=== PATIENT | female | born 1940 | race Caucasian/White ===

== ENCOUNTER → 2016-07-27 | Outpatient (CLI) | payer MEDICARE ==
[~2016-07-27] MED LIST: TRAM50 PO
[2016-07-27 09:29] LABS: HEMATOCRIT 37.4 % (35.0-46.0); MEAN CELL VOLUME 85.2 FL (80.0-100.0); MEAN CORPUSCULAR HGB CONC 32.8 % (32.0-36.0); PLATELET COUNT 231 TH/MM3 (150-450); RED BLOOD COUNT 4.38 MIL/MM3 (4.00-5.30); RED CELL DISTRIBUTION WIDTH 14.8 % (11.6-17.2); REVIEW FLAG FINAL; WHITE BLOOD COUNT 3.1 TH/MM3 (4.0-11.0)
[2016-07-27 09:58] LABS: ALKALINE PHOSPHATASE 89 U/L (45-117); ALT (GPT) 14 U/L (10-53); ANION GAP 5 MEQ/L (5-15); AST (GOT) 10 U/L (15-37); BICARBONATE 30.6 MEQ/L (21.0-32.0); BLOOD UREA NITROGEN 10 MG/DL (7-18); CHLORIDE 104 MEQ/L (98-107); FREE T4 1.17 NG/DL (0.76-1.46); GLOMERULAR FILTRATION RATE 84 ML/MIN (>89); GLUCOSE,FASTING 79 MG/DL (74-99); HDL CHOLESTEROL 67.3 MG/DL (40.0-60.0); LDL CHOLESTEROL 92 MG/DL (0-99); LDL CHOLESTEROL DIRECT 113 MG/DL (0-99); POTASSIUM 4.1 MEQ/L (3.5-5.1); SODIUM (NA) 140 MEQ/L (136-145); TOTAL BILIRUBIN ADULT 0.4 MG/DL (0.2-1.0)
[2016-07-27 16:07] LABS: HEMOGLOBIN A1a 1.1 %; HEMOGLOBIN A1b 1.4 %; HEMOGLOBIN Ao 86.7 %; HEMOGLOBIN LA1C 1.7 %; HEMOGLOBIN P3 3.4 %
== END ==
LOC: PLAB 07:55
PROVIDERS: ATTEND Family Medicine
DX: E78.2 Mixed hyperlipidemia (principal); I10 Essential (primary) hypertension; E03.8 Other specified hypothyroidism; R73.01 Impaired fasting glucose
CPT/HCPCS: 36415; 80053; 80061; 83036; 83721; 84439; 84443; 85027

== ENCOUNTER → 2017-01-23 | Outpatient (CLI) | payer MEDICARE ==
[2017-01-23 10:39] LABS: HEMATOCRIT 37.8 % (35.0-46.0); MEAN CELL VOLUME 85.1 FL (80.0-100.0); MEAN CORPUSCULAR HEMOGLOBIN 28.3 PG (27.0-34.0); MEAN CORPUSCULAR HGB CONC 33.2 % (32.0-36.0); PLATELET COUNT 249 TH/MM3 (150-450); RED BLOOD COUNT 4.45 MIL/MM3 (4.00-5.30); RED CELL DISTRIBUTION WIDTH 14.7 % (11.6-17.2); REVIEW FLAG FINAL; WHITE BLOOD COUNT 2.9 TH/MM3 (4.0-11.0)
[2017-01-23 10:47] LABS: ANION GAP 5 MEQ/L (5-15); AST (GOT) 16 U/L (15-37); BICARBONATE 30.8 MEQ/L (21.0-32.0); BLOOD UREA NITROGEN 11 MG/DL (7-18); CHLORIDE 105 MEQ/L (98-107); GLOMERULAR FILTRATION RATE 89 ML/MIN (>89); GLUCOSE,FASTING 84 MG/DL (74-99); POTASSIUM 4.3 MEQ/L (3.5-5.1); SODIUM (NA) 141 MEQ/L (136-145)
[2017-01-23 11:13] LABS: ALKALINE PHOSPHATASE 59 U/L (45-117); ALT (GPT) 14 U/L (10-53); FREE T4 1.18 NG/DL (0.76-1.46); HDL CHOLESTEROL 77.3 MG/DL (40.0-60.0); LDL CHOLESTEROL 100 MG/DL (0-99); LDL CHOLESTEROL DIRECT 115 MG/DL (0-99); TOTAL BILIRUBIN ADULT 0.4 MG/DL (0.2-1.0)
== END ==
LOC: PLAB 08:40
PROVIDERS: ATTEND Family Medicine
DX: E55.9 Vitamin D deficiency, unspecified (principal); E78.4 Other hyperlipidemia; E03.8 Other specified hypothyroidism; E53.8 Deficiency of other specified B group vitamins
CPT/HCPCS: 36415; 80053; 80061; 82306; 82607; 83721; 84439; 84443; 85027

== ENCOUNTER → 2017-07-23 | Outpatient (CLI) | payer MEDICARE ==
[2017-07-23 10:39] LABS: HEMATOCRIT 38.3 % (35.0-46.0); HEMOGLOBIN 12.8 GM/DL (11.6-15.3); MEAN CELL VOLUME 85.8 FL (80.0-100.0); MEAN CORPUSCULAR HEMOGLOBIN 28.8 PG (27.0-34.0); MEAN CORPUSCULAR HGB CONC 33.5 % (32.0-36.0); MEAN PLATELET VOLUME 7.8 FL (7.0-11.0); PLATELET COUNT 280 TH/MM3 (150-450); RED BLOOD COUNT 4.46 MIL/MM3 (4.00-5.30); RED CELL DISTRIBUTION WIDTH 15.2 % (11.6-17.2); WHITE BLOOD COUNT 3.3 TH/MM3 (4.0-11.0)
[2017-07-23 10:56] LABS: AST (GOT) 21 U/L (15-37); BICARBONATE 30.2 MEQ/L (21.0-32.0); BLOOD UREA NITROGEN 10 MG/DL (7-18); CALCIUM 9.4 MG/DL (8.5-10.1); CHLORIDE 104 MEQ/L (98-107); CREATININE 0.79 MG/DL (0.50-1.00); GLOMERULAR FILTRATION RATE 71 ML/MIN (>89); GLUCOSE,FASTING 82 MG/DL (74-99); SODIUM (NA) 140 MEQ/L (136-145)
[2017-07-23 10:57] LABS: CHOLESTEROL 187 MG/DL (120-200)
[2017-07-23 11:24] LABS: ALKALINE PHOSPHATASE 70 U/L (45-117); ALT (GPT) 21 U/L (10-53); CHOLESTEROL/ HDL RATIO 2.44 RATIO; HDL CHOLESTEROL 76.5 MG/DL (40.0-60.0); LDL CHOLESTEROL 104 MG/DL (0-99); LDL CHOLESTEROL DIRECT 110 MG/DL (0-99); TOTAL BILIRUBIN ADULT 0.5 MG/DL (0.2-1.0); TRIGLYCERIDES 34 MG/DL (42-150)
== END ==
LOC: PLAB 07:56
PROVIDERS: ATTEND Family Medicine
DX: E78.4 Other hyperlipidemia (principal); E03.8 Other specified hypothyroidism; E53.8 Deficiency of other specified B group vitamins; F41.9 Anxiety disorder, unspecified; E55.9 Vitamin D deficiency, unspecified
CPT/HCPCS: 36415; 80053; 80061; 82306; 82607; 83721; 85027

== ENCOUNTER 2017-12-10 14:57 | Inpatient (IN) ==
[2017-12-10] MEDS ORDERED: Sod Chloride 0.9% Inj 1,000 ML IV.CONT SCH (15:30)
--- NOTE | 2017-12-10 15:31 | ED ---
HPI General Chief Complaint: Neuro Symptoms/Deficit Stated Complaint: AMS/shaking Source: patient and other (Friend with frequent communication Sunday and Sunday with change on Sunday morning with moderate confusion.) Mode of arrival: ambulatory Limitations: no limitations (With moderate confusion as to date and time) History of Present Illness HPI Narrative: Patient comes with history of hypertension with moderate confusion noted yesterday that persisted until today when patientWas seen by PMD and found to be confused and disoriented from normal state. There is no other reported neurologic deficit as far as ambulation or activity reported Related Data Home Medications Medication Instructions Recorded Confirmed cholecalciferol (vitamin D3) 4,000 units PO DAILY 12/10/17 12/10/17 levothyroxine 112 mcg PO DAILY 12/10/17 12/10/17 lorazepam 1 mg PO BID 12/10/17 12/10/17 trazodone 50 mg PO HS 12/10/17 12/10/17 Allergies Allergy/AdvReac Type Severity Reaction Status Date / Time morphine Allergy Unknown Agitation Verified 12/10/17 16:05 Review of Systems ROS: all other systems reviewed are negative (GENERAL: Alert and oriented with moderate confusion as to date and time. Also confused as to recent activities. SKIN: Focused skin assessment warm/dry. HEAD: Atraumatic. Normocephalic. EYES : Pupils equal and round. No scleral icterus. No injection or drainage. ENT: No nasal bleeding or discharge) [facility] Medical History Medical History History of cancer tonsil (Acute) Hypothyroidism (Acute) Surgical History Surgical History History of open reduction and internal fixation (ORIF) procedure (Acute) Social History Social History Substance History: No History of Abuse Second Hand Smoke Exposure: No Smoking Status: Never smoker How Often Do You Have a Drink Containing Alcohol: Never Recent Travel in [facility] within the Last 8 Weeks: No Recent Out of Country Travel within the Last 8 Weeks: No Exam Narrative Exam Narrative: GENERAL: Moderate confusion but alert and partially oriented SKIN: Focused skin assessment warm/dry. HEAD: Atraumatic. Normocephalic. EYES: Pupils equal and round. No scleral icterus. No injection or drainage. ENT: No nasal bleeding or discharge. Mucous membranes pink and moist. NECK: Trachea midline. No JVD. CARDIOVASCULAR: Regular rate and rhythm. No murmur appreciated. RESPIRATORY: No accessory muscle use. Clear to auscultation. Breath sounds equal bilaterally. GASTROINTESTINAL: Abdomen soft, non-tender, nondistended. Hepatic and splenic margins not palpable. MUSCULOSKELETAL: No obvious deformities. No clubbing. No cyanosis. No edema. NEUROLOGICAL: Awake and alert. No obvious cranial nerve deficits. Motor grossly within normal limits. Normal speech. PSYCHIATRIC: Appropriate mood and affect; insight and judgment normal. But shows moderate confusion and disorientation. GENERAL: Moderate confusion but largely oriented SKIN: Focused skin assessment warm/dry. HEAD: Atraumatic. Normocephalic. EYES: Pupils equal and round. No scleral icterus. No injection or drainage. ENT: No nasal bleeding or discharge. Mucous membranes pink and moist. NECK: Trachea midline. No JVD. CARDIOVASCULAR: Regular rate and rhythm. No murmur appreciated. Regular rhythm periodically RESPIRATORY: No accessory muscle use. Clear to auscultation. Breath sounds equal bilaterally. GASTROINTESTINAL: Abdomen soft, non-tender, nondistended. Hepatic and splenic margins not palpable. MUSCULOSKELETAL: No obvious deformities. No clubbing. No cyanosis. No edema. NEUROLOGICAL: Awake and alert. No obvious cranial nerve deficits. Motor grossly within normal limits. Normal speech. PSYCHIATRIC: Appropriate mood and affect; moderate confusion. Course Reevaluation(s) Reevaluation #1: Unchanged patient will be admitted with MRI in morning Time: 21:00 Initial Documented Vital Signs Temperature 98.6 F 12/10/17 15:00 Pulse Rate 79 12/10/17 15:00 Respiratory Rate 16 12/10/17 15:00 Blood Pressure 169/104 H 12/10/17 15:00 Pulse Oximetry 98 12/10/17 15:00 Last Documented Vital Signs Temperature 98.6 F 12/10/17 15:00 Pulse Rate 75 12/10/17 16:08 Respiratory Rate 16 12/10/17 16:08 Blood Pressure 144/87 H 12/10/17 16:08 Pulse Oximetry 97 12/10/17 16:08 Critical Care Time Critical Care Time: No Medical Decision Making MDM Narrative Medical decision making narrative: Patient evaluated for differential of other causes for confusion and disoriented state however possibility of CVA can be evaluated with MRI in the morning Medical Screen Exam Complete: Yes Emergency Medical Condition: Yes Medical Records Medical records reviewed: Yes I reviewed the patient's medical records. Lab Data Result diagrams: 12/10/17 15:40 12/10/17 15:40 Lab Results 12/10/17 12/10/17 12/10/17 Range/Units 15:10 15:40 15:40 CBC w Diff Auto diff final WBC 6.3 (4.0-11.0) th/mm3 RBC 4.42 (4.00-5.30) mil/mm3 Hgb 13.4 (11.6-15.3) gm/dL Hct 39.1 (35.0-46.0) % MCV 88.4 (80.0-100.0) fL MCH 30.3 (27.0-34.0) pg MCHC 34.3 (32.0-36.0) % RDW 13.5 (11.6-17.2) % Plt Count 259 (150-450) th/mm3 MPV 7.9 (7.0-11.0) fL Neut % (Auto) 78.3 H (16.0-70.0) % Lymph % (Auto) 14.0 (9.0-44.0) % [place] % (Auto) 7.0 (0.0-8.0) % Eos % (Auto) 0.2 (0.0-4.0) % Baso % (Auto) 0.5 (0.0-2.0) % Neut # (Auto) 5.0 (1.8-7.7) th/mm3 Lymph # (Auto) 0.9 L (1.0-4.8) th/mm3 [place] # (Auto) 0.4 (0.0-0.9) th/mm3 Eos # (Auto) 0.0 (0.0-0.4) th/mm3 Baso # (Auto) 0.0 (0.0-0.2) th/mm3 WBC Differential . Differential Comment . PT (9.8-11.6) sec INR Ratio APTT (24.3-30.1) sec Sodium 136 (136-145) meq/L Potassium 3.4 L (3.5-5.1) meq/L Chloride 100 (98-107) meq/L Carbon Dioxide 29.8 (21.0-32.0) meq/L Anion Gap 6 (5-15) meq/L BUN 18 (7-18) mg/dL Creatinine 0.80 (0.50-1.00) mg/dL Estimated GFR 70 L (>89) mL/min POC Glucose 87 (68-110) mg/dl Random Glucose 92 (74-106) mg/dL Calcium 9.2 (8.5-10.1) mg/dL Total Bilirubin 0.8 (0.2-1.0) mg/dL AST 15 (15-37) U/L ALT 15 (10-53) U/L Alkaline Phosphatase 77 (45-117) U/L Total Creatine Kinase 141 (26-192) U/L CK-MB (CK-2) 3.6 (0.5-3.6) ng/mL Troponin I Less than 0.02 L (0.02-0.05) ng/mL Total Protein 7.6 (6.4-8.2) g/dL Albumin 4.0 (3.4-5.0) g/dL Urine Color (Yellw/Straw) Urine Clarity (Clear) Urine pH (5.0-8.5) Ur Specific [place] (1.002-1.035) Urine Protein (Neg-Trace) mg/dL Urine Glucose (UA) (Negative) mg/dL Urine Ketones (Negative) mg/dL Urine Occult Blood (Negative) Urine Nitrate (Negative) Urine Bilirubin (Negative) Urine Urobilinogen (Less than 2) mg/dL Ur Leukocyte Esterase (Negative) Urine WBC (0-5) /hpf Micro UA Comment Ur Microscopic Review Urine Culture Comments Urine Opiates Screen (Neg) Ur Barbiturates Screen (Neg) Ur Amphetamines Screen (Neg) U Benzodiazepines Scrn (Neg) Urine Cocaine Screen (Neg) U Cannabinoids Screen (Neg) Blood Type Blood Type Recheck Antibody Screen 12/10/17 12/10/17 12/10/17 Range/Units 15:40 15:40 15:40 CBC w Diff WBC (4.0-11.0) th/mm3 RBC (4.00-5.30) mil/mm3 Hgb (11.6-15.3) gm/dL Hct (35.0-46.0) % MCV (80.0-100.0) fL MCH (27.0-34.0) pg MCHC (32.0-36.0) % RDW (11.6-17.2) % Plt Count (150-450) th/mm3 MPV (7.0-11.0) fL Neut % (Auto) (16.0-70.0) % Lymph % (Auto) (9.0-44.0) % [place] % (Auto) (0.0-8.0) % Eos % (Auto) (0.0-4.0) % Baso % (Auto) (0.0-2.0) % Neut # (Auto) (1.8-7.7) th/mm3 Lymph # (Auto) (1.0-4.8) th/mm3 [place] # (Auto) (0.0-0.9) th/mm3 Eos # (Auto) (0.0-0.4) th/mm3 Baso # (Auto) (0.0-0.2) th/mm3 WBC Differential Differential Comment PT 10.7 (9.8-11.6) sec INR 1.1 Ratio APTT 25.6 (24.3-30.1) sec Sodium (136-145) meq/L Potassium (3.5-5.1) meq/L Chloride (98-107) meq/L Carbon Dioxide (21.0-32.0) meq/L Anion Gap (5-15) meq/L BUN (7-18) mg/dL Creatinine (0.50-1.00) mg/dL Estimated GFR (>89) mL/min POC Glucose (68-110) mg/dl Random Glucose (74-106) mg/dL Calcium (8.5-10.1) mg/dL Total Bilirubin (0.2-1.0) mg/dL AST (15-37) U/L ALT (10-53) U/L Alkaline Phosphatase (45-117) U/L Total Creatine Kinase Cancelled (26-192) U/L CK-MB (CK-2) (0.5-3.6) ng/mL Troponin I Cancelled (0.02-0.05) ng/mL Total Protein (6.4-8.2) g/dL Albumin (3.4-5.0) g/dL Urine Color (Yellw/Straw) Urine Clarity (Clear) Urine pH (5.0-8.5) Ur Specific [place] (1.002-1.035) Urine Protein (Neg-Trace) mg/dL Urine Glucose (UA) (Negative) mg/dL Urine Ketones (Negative) mg/dL Urine Occult Blood (Negative) Urine Nitrate (Negative) Urine Bilirubin (Negative) Urine Urobilinogen (Less than 2) mg/dL Ur Leukocyte Esterase (Negative) Urine WBC (0-5) /hpf Micro UA Comment Ur Microscopic Review Urine Culture Comments Urine Opiates Screen (Neg) Ur Barbiturates Screen (Neg) Ur Amphetamines Screen (Neg) U Benzodiazepines Scrn (Neg) Urine Cocaine Screen (Neg) U Cannabinoids Screen (Neg) Blood Type B Positive Blood Type Recheck Required Antibody Screen Negative 12/10/17 12/10/17 Range/Units 18:50 18:50 CBC w Diff WBC (4.0-11.0) th/mm3 RBC (4.00-5.30) mil/mm3 Hgb (11.6-15.3) gm/dL Hct (35.0-46.0) % MCV (80.0-100.0) fL MCH (27.0-34.0) pg MCHC (32.0-36.0) % RDW (11.6-17.2) % Plt Count (150-450) th/mm3 MPV (7.0-11.0) fL Neut % (Auto) (16.0-70.0) % Lymph % (Auto) (9.0-44.0) % [place] % (Auto) (0.0-8.0) % Eos % (Auto) (0.0-4.0) % Baso % (Auto) (0.0-2.0) % Neut # (Auto) (1.8-7.7) th/mm3 Lymph # (Auto) (1.0-4.8) th/mm3 [place] # (Auto) (0.0-0.9) th/mm3 Eos # (Auto) (0.0-0.4) th/mm3 Baso # (Auto) (0.0-0.2) th/mm3 WBC Differential Differential Comment PT (9.8-11.6) sec INR Ratio APTT (24.3-30.1) sec Sodium (136-145) meq/L Potassium (3.5-5.1) meq/L Chloride (98-107) meq/L Carbon Dioxide (21.0-32.0) meq/L Anion Gap (5-15) meq/L BUN (7-18) mg/dL Creatinine (0.50-1.00) mg/dL Estimated GFR (>89) mL/min POC Glucose (68-110) mg/dl Random Glucose (74-106) mg/dL Calcium (8.5-10.1) mg/dL Total Bilirubin (0.2-1.0) mg/dL AST (15-37) U/L ALT (10-53) U/L Alkaline Phosphatase (45-117) U/L Total Creatine Kinase (26-192) U/L CK-MB (CK-2) (0.5-3.6) ng/mL Troponin I (0.02-0.05) ng/mL Total Protein (6.4-8.2) g/dL Albumin (3.4-5.0) g/dL Urine Color Yellow (Yellw/Straw) Urine Clarity Clear (Clear) Urine pH 6.5 (5.0-8.5) Ur Specific [place] 1.015 (1.002-1.035) Urine Protein Negative (Neg-Trace) mg/dL Urine Glucose (UA) Negative (Negative) mg/dL Urine Ketones 15 H (Negative) mg/dL Urine Occult Blood Negative (Negative) Urine Nitrate Negative (Negative) Urine Bilirubin Negative (Negative) Urine Urobilinogen 1.0 (Less than 2) mg/dL Ur Leukocyte Esterase Negative (Negative) Urine WBC 0-5 (0-5) /hpf Micro UA Comment Culture not ind Ur Microscopic Review Microscopic reviewed Urine Culture Comments Culture not ind Urine Opiates Screen Neg (Neg) Ur Barbiturates Screen Neg (Neg) Ur Amphetamines Screen Neg (Neg) U Benzodiazepines Scrn Neg (Neg) Urine Cocaine Screen Neg (Neg) U Cannabinoids Screen Neg (Neg) Blood Type Blood Type Recheck Antibody Screen Imaging Data Radiologist's impression: Head CT 12/10/17 15:20 CONCLUSION: 1. Senescent changes without acute intracranial abnormality. . Chest X-Ray 12/10/17 15:21 CONCLUSION: Negative for an acute process Discharge Plan Discharge Disposition Patient Disposition: 50 Hospice/Home Discharge Condition Condition: [facility] ED Provider: Xu Enciso Primary Care Provider: Ruslan Malagon Rxs /Orders / Referrals /Forms Prescriptions: No Action cholecalciferol (vitamin D3) 4,000 units PO DAILY RF: 0 levothyroxine 112 mcg PO DAILY RF: 0 lorazepam 1 mg PO BID RF: 0 trazodone 50 mg PO HS RF: 0 Status ED Status: In Room
--- NOTE | 2017-12-10 16:05 | XR ---
EXAM DATE: 12/10/2017 3:55 PM EDT AGE/SEX: 77 years / Female INDICATIONS: Altered mental status. CLINICAL DATA: This is the patient's initial encounter. Patient reports that signs and symptoms have been present for 1 day and indicates a pain score of 0/10. MEDICAL/SURGICAL HISTORY: Hypothyroidism. Tonsil cancer. Tonsillectomy. COMPARISON: No prior exams available for comparison. FINDINGS: A single AP view of the chest demonstrates the lungs to be symmetrically aerated without evidence of mass, infiltrate or effusion. The cardiomediastinal contours are unremarkable. Osseous structures a re intact. CONCLUSION: Negative for an acute process Electronically signed by: Immanuel Blanca MD 12/10/2017 4:04 PM EDT
[2017-12-10 16:07] LABS: Baso % (Auto) 0.5 % (0.0-2.0); Eos % (Auto) 0.2 % (0.0-4.0); Hematocrit 39.1 % (35.0-46.0); Hemoglobin 13.4 gm/dL (11.6-15.3); Lymph # (Auto) 0.9 th/mm3 (1.0-4.8); Mean Corpuscular HGB Conc 34.3 % (32.0-36.0); Mean Corpuscular Hemoglobin 30.3 pg (27.0-34.0); Mean Corpuscular Volume 88.4 fL (80.0-100.0); Mean Platelet Volume 7.9 fL (7.0-11.0); Mono # (Auto) 0.4 th/mm3 (0.0-0.9); Neut % (Auto) 78.3 % (16.0-70.0); Platelet Count 259 th/mm3 (150-450); Red Blood Count 4.42 mil/mm3 (4.00-5.30); Red Cell Distribution Width 13.5 % (11.6-17.2); White Blood Count 6.3 th/mm3 (4.0-11.0)
[2017-12-10 16:22] LABS: Chloride 100 meq/L (98-107); Potassium 3.4 meq/L (3.5-5.1); Sodium 136 meq/L (136-145)
[2017-12-10 16:25] LABS: Calcium 9.2 mg/dL (8.5-10.1)
[2017-12-10 16:26] LABS: Anion Gap 6 meq/L (5-15); Blood Urea Nitrogen 18 mg/dL (7-18); Carbon Dioxide 29.8 meq/L (21.0-32.0); Glucose,Random 92 mg/dL (74-106)
[2017-12-10 16:29] LABS: Alanine Aminotransferase 15 U/L (10-53); Aspartate Aminotransferase 15 U/L (15-37); Glomerular Filtration Rate 70 mL/min (>89)
[2017-12-10 16:31] LABS: Activated Partial Thrombo Time 25.6 sec (24.3-30.1); INR 1.1 Ratio; Prothrombin Time 10.7 sec (9.8-11.6); Total Protein 7.6 g/dL (6.4-8.2)
[2017-12-10 16:32] LABS: Alkaline Phosphatase 77 U/L (45-117); Creatine Kinase 141 U/L (26-192)
[2017-12-10 16:44] LABS: Creatine Kinase MB 3.6 ng/mL (0.5-3.6)
--- NOTE | 2017-12-10 17:01 | CT ---
EXAM DATE: 12/10/2017 4:55 PM EDT AGE/SEX: 77 years / Female INDICATIONS: Episode of confusion. CLINICAL DATA: This is the patient's initial encounter. Patient reports that signs and symptoms have been present for 1 day and indicates a pain score of 0/10. MEDICAL/SURGICAL HISTORY: Hypothyroidism. Tonsil cancer. None. RADIATION DOSE: 54.79 CTDI (mGy) COMPARISON: POI, MR BRAIN W AND W/O CONTRAST, 09/21/2015. . TECHNIQUE: CT of the head without contrast. Using automated exposure control and adjustment of the mA and/or kV according to patient size, radiation dose was kept as low as reasonably achievable to ob tain optimal diagnostic quality images. DICOM format image data is available electronically for revi ew and comparison. FINDINGS: Cerebrum: Mild diffuse cerebral atrophy. The ventricles are normal for degree of atrophy. Mild periv entricular white matter hypodensities. No evidence of midline shift, mass lesion, hemorrhage or acute infarction. No extraaxial fluid collections are seen. Posterior Fossa: The cerebellum and brainstem are intact. The 4th ventricle is midline. The cerebe llopontine angle is unremarkable. Extracranial: The visualized portion of the orbits is intact. Skull: The calvaria is intact. No evidence of skull fracture. CONCLUSION: 1. Senescent changes without acute intracranial abnormality. . Electronically signed by: Isael Stringer MD 12/10/2017 5:00 PM EDT
[2017-12-10] MEDS ORDERED: HYDROmorphone PF Inj 2 MG/ML Vial IV.PUSH ONE (17:26)
[2017-12-10 19:13] LABS: Cocaine Screen,Urine Neg (Neg)
[2017-12-10 19:17] LABS: Opiate Screen,Urine Neg (Neg)
[2017-12-10 19:21] LABS: Amphetamine Screen,Urine Neg (Neg)
[2017-12-10 19:23] LABS: Barbiturate Screen,Urine Neg (Neg)
[2017-12-10 19:26] LABS: Cannabinoid Screen,Urine Neg (Neg)
[2017-12-10 19:34] LABS: Bilirubin,Urine Negative (Negative); Clarity,Urine Clear (Clear); Color,Urine Yellow (Yellw/Straw); Glucose,Urine (UA) Negative (Negative); Leukocyte Esterase,Urine Negative (Negative); Nitrite,Urine Negative (Negative); PH,Urine 6.5 (5.0-8.5); Specific Gravity,Urine 1.015 (1.002-1.035); WBC,Urine 0-5 /hpf (0-5)
[2017-12-10] MEDS: Sod Chloride 0.9% Inj 1,000 ML IV.CONT SCH (21:30)
[2017-12-11] MEDS: Sod Chloride 0.9% Inj 1,000 ML IV.CONT SCH ×3 (05:38→16:02)
[2017-12-11 06:17] LABS: Eos % (Auto) 0.8 % (0.0-4.0); Hematocrit 36.9 % (35.0-46.0); Hemoglobin 12.8 gm/dL (11.6-15.3); Lymph # (Auto) 0.7 th/mm3 (1.0-4.8); Lymph % (Auto) 17.3 % (9.0-44.0); Mean Corpuscular HGB Conc 34.7 % (32.0-36.0); Mean Corpuscular Hemoglobin 30.8 pg (27.0-34.0); Mean Corpuscular Volume 88.6 fL (80.0-100.0); Mean Platelet Volume 8.1 fL (7.0-11.0); Mono # (Auto) 0.4 th/mm3 (0.0-0.9); Mono % (Auto) 9.9 % (0.0-8.0); Neut # (Auto) 2.8 th/mm3 (1.8-7.7); Platelet Count 245 th/mm3 (150-450); Red Blood Count 4.16 mil/mm3 (4.00-5.30); White Blood Count 3.9 th/mm3 (4.0-11.0)
[2017-12-11 06:23] LABS: Chloride 105 meq/L (98-107); Potassium 3.5 meq/L (3.5-5.1); Sodium 141 meq/L (136-145)
[2017-12-11 06:46] LABS: Anion Gap 6 meq/L (5-15); Blood Urea Nitrogen 13 mg/dL (7-18); Calcium 8.3 mg/dL (8.5-10.1); Carbon Dioxide 30.1 meq/L (21.0-32.0); Glomerular Filtration Rate Greater Than 89 mL/min (>89); Glucose,Random 87 mg/dL (74-106)
--- NOTE | 2017-12-11 09:04 | P.CONNEU ---
History of Present Illness Service: Neurology Primary Care Provider: Ruslan Malagon MD Family Provider: Ruslan Malagon MD Chief Complaint: Confusion History of Present Illness: 77-year-old female admitted for confusion past couple of days. Noticed by her friend. She states she gets this whenever she has a migraine she gets in a clinical stuporous state. She has a history of migraine headaches since childhood. Denies any history of stroke or TIA or seizure. Denies any visual loss focal weakness or language disturbance. She lives alone and is independent all activities. She just finished eating breakfast and feels better. Review of Systems All other systems reviewed negative except as stated in HPI PMFSH - History History Provided By: Patient - Medical History Medical History: Medical History (Last Reviewed 12/10/17 @ 20:29 by Xu Enciso MD) History of cancer tonsil Hypothyroidism - Surgical History Surgical History: Surgical History (Last Reviewed 12/10/17 @ 20:29 by Xu Enciso MD) History of open reduction and internal fixation (ORIF) procedure - Tobacco History Second Hand Smoke Exposure: No Tobacco Use In Past 30 Days: No Smoking Status: Never smoker - Alcohol History How Often Do You Have a Drink Containing Alcohol: Never - Substance Use History Substance History: No History of Abuse - Travel History Recent Travel in the [place] Within the Last 8 Weeks: No Recent Travel Out of the Country Within the Last 8 Weeks: No - Immunization History Tetanus Immunization: Never Vaccinated Hx Influenza Vaccine This Season: No Medications and Allergies Active Medications: Active Medications Sodium Chloride (Ns Inj) 1,000 mls @ 100 mls/hr IV.CONT .Q10H UMESH Last Admin: 12/11/17 06:10 Dose: Not Given Ondansetron HCl (Zofran Inj) 4 mg IV.PUSH Q6H PRN PRN Reason: NAUSEA OR VOMITING Sodium Chloride (Ns Flush) 2 ml IV.FLUSH PRN PRN PRN Reason: FLUSH AFTER USING IV ACCESS Allergies Allergy/AdvReac Type Severity Reaction Status Date / Time morphine Allergy Unknown Agitation Verified 12/10/17 16:05 Home Medications Medication Instructions Recorded Confirmed Type cholecalciferol (vitamin D3) 4,000 units PO DAILY 12/10/17 12/10/17 History levothyroxine 112 mcg PO DAILY 12/10/17 12/10/17 History lorazepam 1 mg PO BID 12/10/17 12/10/17 History trazodone 50 mg PO HS 12/10/17 12/10/17 History Exam Vital signs: Vital Signs 12/10/17 15:00 12/10/17 15:28 12/10/17 16:08 Temperature 98.6 F Pulse Rate 79 75 Respiratory Rate 16 16 Blood Pressure 169/104 H 144/87 H Pulse Oximetry 98 98 97 12/10/17 21:24 12/10/17 23:08 12/10/17 23:11 Temperature 98.6 F Pulse Rate 78 77 84 Respiratory Rate 18 15 Blood Pressure 161/89 H 171/89 H Pulse Oximetry 98 91 L 12/11/17 00:00 12/11/17 08:00 Temperature 98.5 F Pulse Rate 86 Respiratory Rate 16 Blood Pressure 138/87 Pulse Oximetry 94 L 97 Intake & Output 12/10/17 12/11/17 12/11/17 18:59 06:59 18:59 Intake Total 2280 / 2280 Balance 2280 / 2280 Weight 61.5 kg 59.6 kg Intake: IV 1999 NS Inj 1,000 ML @ 70 mls/hr IV. 1999 CONT .[id number] UMESH Rx#: [id number] Oral 280 / 280 Other: # Voids 3 Date of Last Bowel Movement 12/09/17 Weight On Admission 59.6 kg Narrative: GENERAL: This is a well-nourished, well-developed patient, in no apparent distress. SKIN: No rashes, ecchymoses or lesions. Warm and dry. HEAD: Atraumatic. Normocephalic. No temporal or scalp tenderness. EYES: Pupils equal round and reactive. No injection or drainage. ENT: Nose without bleeding, purulent drainage or septal hematoma. Airway patent. NECK: Trachea midline. No lymphadenopathy. Supple, nontender, no meningeal signs. CARDIOVASCULAR: Regular rate and rhythm without murmurs, gallops, or rubs. No JVD. RESPIRATORY: Clear to auscultation. Breath sounds equal bilaterally. GASTROINTESTINAL: Abdomen soft, non-tender, nondistended. No guarding. MUSCULOSKELETAL: Extremities without clubbing, cyanosis, or edema. NEUROLOGICAL: Awake and alert. Oriented 3, clear speech sitting up in bed poor eye contact, mild left-sided neglect however visual miranda full however OU 3 mm sluggishly reactive, Cranial nerves II through XII intact. Neck supple, no temporal tenderness no pronator drift no dystaxia no tremors noted. Gait not assessed secondary potential fall risk - Constitutional no acute distress - Routine HEENT Exam Head: Present: normocephalic Eye: Present: EOMI Results - Labs CBC & Chem 7: 12/11/17 05:50 12/11/17 05:50 Labs: Laboratory Results - last 24 hr 12/10/17 12/10/17 12/10/17 15:10 15:40 15:40 CBC w Diff Auto diff final WBC 6.3 RBC 4.42 Hgb 13.4 Hct 39.1 MCV 88.4 MCH 30.3 MCHC 34.3 RDW 13.5 Plt Count 259 MPV 7.9 Neut % (Auto) 78.3 H Lymph % (Auto) 14.0 [place] % (Auto) 7.0 Eos % (Auto) 0.2 Baso % (Auto) 0.5 Neut # (Auto) 5.0 Lymph # (Auto) 0.9 L [place] # (Auto) 0.4 Eos # (Auto) 0.0 Baso # (Auto) 0.0 WBC Differential . Differential Comment . PT INR APTT Sodium 136 Potassium 3.4 L Chloride 100 Carbon Dioxide 29.8 Anion Gap 6 BUN 18 Creatinine 0.80 Estimated GFR 70 L POC Glucose 87 Random Glucose 92 Calcium 9.2 Total Bilirubin 0.8 AST 15 ALT 15 Alkaline Phosphatase 77 Ammonia Total Creatine Kinase 141 CK-MB (CK-2) 3.6 Troponin I Less than 0.02 L Total Protein 7.6 Albumin 4.0 Urine Color Urine Clarity Urine pH Ur Specific [place] Urine Protein Urine Glucose (UA) Urine Ketones Urine Occult Blood Urine Nitrate Urine Bilirubin Urine Urobilinogen Ur Leukocyte Esterase Urine WBC Micro UA Comment Ur Microscopic Review Urine Culture Comments Urine Opiates Screen Ur Barbiturates Screen Ur Amphetamines Screen U Benzodiazepines Scrn Urine Cocaine Screen U Cannabinoids Screen Blood Type Blood Type Recheck Antibody Screen 12/10/17 12/10/17 12/10/17 15:40 15:40 15:40 CBC w Diff WBC RBC Hgb Hct MCV MCH MCHC RDW Plt Count MPV Neut % (Auto) Lymph % (Auto) [place] % (Auto) Eos % (Auto) Baso % (Auto) Neut # (Auto) Lymph # (Auto) [place] # (Auto) Eos # (Auto) Baso # (Auto) WBC Differential Differential Comment PT 10.7 INR 1.1 APTT 25.6 Sodium Potassium Chloride Carbon Dioxide Anion Gap BUN Creatinine Estimated GFR POC Glucose Random Glucose Calcium Total Bilirubin AST ALT Alkaline Phosphatase Ammonia Total Creatine Kinase Cancelled CK-MB (CK-2) Troponin I Cancelled Total Protein Albumin Urine Color Urine Clarity Urine pH Ur Specific [place] Urine Protein Urine Glucose (UA) Urine Ketones Urine Occult Blood Urine Nitrate Urine Bilirubin Urine Urobilinogen Ur Leukocyte Esterase Urine WBC Micro UA Comment Ur Microscopic Review Urine Culture Comments Urine Opiates Screen Ur Barbiturates Screen Ur Amphetamines Screen U Benzodiazepines Scrn Urine Cocaine Screen U Cannabinoids Screen Blood Type B Positive Blood Type Recheck Required Antibody Screen Negative 12/10/17 12/10/17 12/10/17 18:50 18:50 21:35 CBC w Diff WBC RBC Hgb Hct MCV MCH MCHC RDW Plt Count MPV Neut % (Auto) Lymph % (Auto) [place] % (Auto) Eos % (Auto) Baso % (Auto) Neut # (Auto) Lymph # (Auto) [place] # (Auto) Eos # (Auto) Baso # (Auto) WBC Differential Differential Comment PT INR APTT Sodium Potassium Chloride Carbon Dioxide Anion Gap BUN Creatinine Estimated GFR POC Glucose Random Glucose Calcium Total Bilirubin AST ALT Alkaline Phosphatase Ammonia Less than 10 L Total Creatine Kinase CK-MB (CK-2) Troponin I Total Protein Albumin Urine Color Yellow Urine Clarity Clear Urine pH 6.5 Ur Specific [place] 1.015 Urine Protein Negative Urine Glucose (UA) Negative Urine Ketones 15 H Urine Occult Blood Negative Urine Nitrate Negative Urine Bilirubin Negative Urine Urobilinogen 1.0 Ur Leukocyte Esterase Negative Urine WBC 0-5 Micro UA Comment Culture not ind Ur Microscopic Review Microscopic reviewed Urine Culture Comments Culture not ind Urine Opiates Screen Neg Ur Barbiturates Screen Neg Ur Amphetamines Screen Neg U Benzodiazepines Scrn Neg Urine Cocaine Screen Neg U Cannabinoids Screen Neg Blood Type Blood Type Recheck Antibody Screen 12/11/17 12/11/17 05:50 05:50 CBC w Diff Auto diff final WBC 3.9 L RBC 4.16 Hgb 12.8 Hct 36.9 MCV 88.6 MCH 30.8 MCHC 34.7 RDW 13.0 Plt Count 245 MPV 8.1 Neut % (Auto) 71.0 H Lymph % (Auto) 17.3 [place] % (Auto) 9.9 H Eos % (Auto) 0.8 Baso % (Auto) 1.0 Neut # (Auto) 2.8 Lymph # (Auto) 0.7 L [place] # (Auto) 0.4 Eos # (Auto) 0.0 Baso # (Auto) 0.0 WBC Differential . Differential Comment . PT INR APTT Sodium 141 Potassium 3.5 Chloride 105 Carbon Dioxide 30.1 Anion Gap 6 BUN 13 Creatinine 0.62 Estimated GFR Greater than 89 POC Glucose Random Glucose 87 Calcium 8.3 L D Total Bilirubin AST ALT Alkaline Phosphatase Ammonia Total Creatine Kinase CK-MB (CK-2) Troponin I Total Protein Albumin Urine Color Urine Clarity Urine pH Ur Specific [place] Urine Protein Urine Glucose (UA) Urine Ketones Urine Occult Blood Urine Nitrate Urine Bilirubin Urine Urobilinogen Ur Leukocyte Esterase Urine WBC Micro UA Comment Ur Microscopic Review Urine Culture Comments Urine Opiates Screen Ur Barbiturates Screen Ur Amphetamines Screen U Benzodiazepines Scrn Urine Cocaine Screen U Cannabinoids Screen Blood Type Blood Type Recheck Antibody Screen - Imaging Impressions Head CT 12/10/17 15:20 CONCLUSION: 1. Senescent changes without acute intracranial abnormality. . Chest X-Ray 12/10/17 15:21 CONCLUSION: Negative for an acute process Review/Management - Diagnosis (1) TIA (transient ischemic attack) Code(s): G45.9 - Transient cerebral ischemic attack, unspecified Status: Acute Current Visit: Yes (2) Migraine Code(s): G43.909 - Migraine, unspecified, not intractable, without status migrainosus Status: Acute Current Visit: Yes (3) Encephalopathy Code(s): G93.40 - Encephalopathy, unspecified Status: Acute Current Visit: Yes - Review/Management Plan: Confusion appears improved although did have somewhat poor eye contact slight left-sided neglect during the interview. Consideration would include right hemispheric TIA/stroke, complex migraine Recommendations Follow-up neuroimaging Aspirin Blood pressure control Echo, lipids EEG Therapy Avoid triptan's Discussed with medical
--- NOTE | 2017-12-11 10:22 | P.HP ---
History of Present Illness Service: Hospitalist Primary Care Physician: Ruslan Malagon MD Chief Complaint: Migraine History of Present Illness: Ms. Reyez is a pleasant 77-year-old female with a history of hypothyroidism and migraine headache who presents to the emergency department on 12/10/2017 due to moderate confusion noted by her primary care physician. Patient reports a bad migraine headache on 12/09/2017. She felt that she was in a stuporous state. On 12/10/2017 she went to her primary care physician for a vitamin B12 shot. Primary care physician noted that patient was disoriented. Patient denies any dysarthria, facial drooling, any focal neurological deficits other than what her primary care physician mention about confusion. She was subsequently advised to come to the emergency department. Patient denies any chest pain, shortness of breath, cough, abdominal pain, fever or chills. No changes in bowel or bladder habits. Additionally, patient expressed concern about upper extremity tremors. During this examination and interview no tremors were noted. Family history: No family history of Alzheimer's or Parkinson's. Past surgical history: ORIF. Social history: Patient denies using tobacco, alcohol, illicit drugs. Past medical history cancer of tonsil, migraine headache, hypothyroidism. - Diagnosis (1) Migraine Review of Systems All other systems reviewed negative except as stated in HPI PMFSH - History History Provided By: Patient - Medical History Medical History: Medical History (Last Reviewed 12/10/17 @ 20:29 by Xu Enciso MD) History of cancer tonsil Hypothyroidism - Surgical History Surgical History: Surgical History (Last Reviewed 12/10/17 @ 20:29 by Xu Enciso MD) History of open reduction and internal fixation (ORIF) procedure - Tobacco History Second Hand Smoke Exposure: No Tobacco Use In Past 30 Days: No Smoking Status: Never smoker - Alcohol History How Often Do You Have a Drink Containing Alcohol: Never - Substance Use History Substance History: No History of Abuse - Travel History Recent Travel in the [place] Within the Last 8 Weeks: No Recent Travel Out of the Country Within the Last 8 Weeks: No - Immunization History Tetanus Immunization: Never Vaccinated Hx Influenza Vaccine This Season: No Medications and Allergies Active Medications: Active Medications Sodium Chloride (Ns Inj) 1,000 mls @ 100 mls/hr IV.CONT .Q10H [facility]ESH Last Admin: 12/11/17 06:10 Dose: Not Given Ondansetron HCl (Zofran Inj) 4 mg IV.PUSH Q6H PRN PRN Reason: NAUSEA OR VOMITING Sodium Chloride (Ns Flush) 2 ml IV.FLUSH PRN PRN PRN Reason: FLUSH AFTER USING IV ACCESS Allergies Allergy/AdvReac Type Severity Reaction Status Date / Time morphine Allergy Unknown Agitation Verified 12/10/17 16:05 Home Medications Medication Instructions Recorded Confirmed Type cholecalciferol (vitamin D3) 4,000 units PO DAILY 12/10/17 12/10/17 History levothyroxine 112 mcg PO DAILY 12/10/17 12/10/17 History lorazepam 1 mg PO BID 12/10/17 12/10/17 History trazodone 50 mg PO HS 12/10/17 12/10/17 History Exam Vital signs: Vital Signs 12/10/17 15:00 12/10/17 15:28 12/10/17 16:08 Temperature 98.6 F Pulse Rate 79 75 Respiratory Rate 16 16 Blood Pressure 169/104 H 144/87 H Pulse Oximetry 98 98 97 12/10/17 21:24 12/10/17 23:08 12/10/17 23:11 Temperature 98.6 F Pulse Rate 78 77 84 Respiratory Rate 18 15 Blood Pressure 161/89 H 171/89 H Pulse Oximetry 98 91 L 12/11/17 00:00 12/11/17 08:00 Temperature 98.5 F Pulse Rate 86 Respiratory Rate 16 Blood Pressure 138/87 Pulse Oximetry 94 L 97 Intake & Output 12/10/17 12/11/17 12/11/17 18:59 06:59 18:59 Intake Total 2280 / 2280 Balance 2280 / 2280 Weight 61.5 kg 59.6 kg Intake: IV 1999 NS Inj 1,000 ML @ 70 mls/hr IV. 1999 CONT .[id number] [facility] Rx#: [id number] Oral 280 / 280 Other: # Voids 3 Date of Last Bowel Movement 12/09/17 Weight On Admission 59.6 kg Narrative: GENERAL: This is a well-nourished, well-developed patient, in no apparent distress. SKIN: No rashes, ecchymoses or lesions. Warm and dry. HEAD: Atraumatic. Normocephalic. No temporal or scalp tenderness. EYES: Pupils equal round and reactive. No injection or drainage. ENT: Nose without bleeding, purulent drainage or septal hematoma. Airway patent. NECK: Trachea midline. No lymphadenopathy. Supple, nontender, no meningeal signs. CARDIOVASCULAR: Regular rate and rhythm without murmurs, gallops, or rubs. No JVD. RESPIRATORY: Clear to auscultation. Breath sounds equal bilaterally. No wheezes , rales, or rhonchi. GASTROINTESTINAL: Abdomen soft, non-tender, nondistended. No guarding. MUSCULOSKELETAL: Extremities without clubbing, cyanosis, or edema. NEUROLOGICAL: Awake and alert. Cranial nerves II through XII intact. No focal neurological deficits. No tremors noted. Normal speech. Results - Labs CBC & Chem 7: 12/11/17 05:50 12/11/17 05:50 Labs: Laboratory Results - last 24 hr 12/10/17 12/10/17 12/10/17 15:10 15:40 15:40 CBC w Diff Auto diff final WBC 6.3 RBC 4.42 Hgb 13.4 Hct 39.1 MCV 88.4 MCH 30.3 MCHC 34.3 RDW 13.5 Plt Count 259 MPV 7.9 Neut % (Auto) 78.3 H Lymph % (Auto) 14.0 [place] % (Auto) 7.0 Eos % (Auto) 0.2 Baso % (Auto) 0.5 Neut # (Auto) 5.0 Lymph # (Auto) 0.9 L [place] # (Auto) 0.4 Eos # (Auto) 0.0 Baso # (Auto) 0.0 WBC Differential . Differential Comment . PT INR APTT Sodium 136 Potassium 3.4 L Chloride 100 Carbon Dioxide 29.8 Anion Gap 6 BUN 18 Creatinine 0.80 Estimated GFR 70 L POC Glucose 87 Random Glucose 92 Calcium 9.2 Total Bilirubin 0.8 AST 15 ALT 15 Alkaline Phosphatase 77 Ammonia Total Creatine Kinase 141 CK-MB (CK-2) 3.6 Troponin I Less than 0.02 L Total Protein 7.6 Albumin 4.0 Urine Color Urine Clarity Urine pH Ur Specific [place] Urine Protein Urine Glucose (UA) Urine Ketones Urine Occult Blood Urine Nitrate Urine Bilirubin Urine Urobilinogen Ur Leukocyte Esterase Urine WBC Micro UA Comment Ur Microscopic Review Urine Culture Comments Urine Opiates Screen Ur Barbiturates Screen Ur Amphetamines Screen U Benzodiazepines Scrn Urine Cocaine Screen U Cannabinoids Screen Blood Type Blood Type Recheck Antibody Screen 12/10/17 12/10/17 12/10/17 15:40 15:40 15:40 CBC w Diff WBC RBC Hgb Hct MCV MCH MCHC RDW Plt Count MPV Neut % (Auto) Lymph % (Auto) [place] % (Auto) Eos % (Auto) Baso % (Auto) Neut # (Auto) Lymph # (Auto) [place] # (Auto) Eos # (Auto) Baso # (Auto) WBC Differential Differential Comment PT 10.7 INR 1.1 APTT 25.6 Sodium Potassium Chloride Carbon Dioxide Anion Gap BUN Creatinine Estimated GFR POC Glucose Random Glucose Calcium Total Bilirubin AST ALT Alkaline Phosphatase Ammonia Total Creatine Kinase Cancelled CK-MB (CK-2) Troponin I Cancelled Total Protein Albumin Urine Color Urine Clarity Urine pH Ur Specific [place] Urine Protein Urine Glucose (UA) Urine Ketones Urine Occult Blood Urine Nitrate Urine Bilirubin Urine Urobilinogen Ur Leukocyte Esterase Urine WBC Micro UA Comment Ur Microscopic Review Urine Culture Comments Urine Opiates Screen Ur Barbiturates Screen Ur Amphetamines Screen U Benzodiazepines Scrn Urine Cocaine Screen U Cannabinoids Screen Blood Type B Positive Blood Type Recheck Required Antibody Screen Negative 12/10/17 12/10/17 12/10/17 18:50 18:50 21:35 CBC w Diff WBC RBC Hgb Hct MCV MCH MCHC RDW Plt Count MPV Neut % (Auto) Lymph % (Auto) [place] % (Auto) Eos % (Auto) Baso % (Auto) Neut # (Auto) Lymph # (Auto) [place] # (Auto) Eos # (Auto) Baso # (Auto) WBC Differential Differential Comment PT INR APTT Sodium Potassium Chloride Carbon Dioxide Anion Gap BUN Creatinine Estimated GFR POC Glucose Random Glucose Calcium Total Bilirubin AST ALT Alkaline Phosphatase Ammonia Less than 10 L Total Creatine Kinase CK-MB (CK-2) Troponin I Total Protein Albumin Urine Color Yellow Urine Clarity Clear Urine pH 6.5 Ur Specific [place] 1.015 Urine Protein Negative Urine Glucose (UA) Negative Urine Ketones 15 H Urine Occult Blood Negative Urine Nitrate Negative Urine Bilirubin Negative Urine Urobilinogen 1.0 Ur Leukocyte Esterase Negative Urine WBC 0-5 Micro UA Comment Culture not ind Ur Microscopic Review Microscopic reviewed Urine Culture Comments Culture not ind Urine Opiates Screen Neg Ur Barbiturates Screen Neg Ur Amphetamines Screen Neg U Benzodiazepines Scrn Neg Urine Cocaine Screen Neg U Cannabinoids Screen Neg Blood Type Blood Type Recheck Antibody Screen 12/11/17 12/11/17 05:50 05:50 CBC w Diff Auto diff final WBC 3.9 L RBC 4.16 Hgb 12.8 Hct 36.9 MCV 88.6 MCH 30.8 MCHC 34.7 RDW 13.0 Plt Count 245 MPV 8.1 Neut % (Auto) 71.0 H Lymph % (Auto) 17.3 [place] % (Auto) 9.9 H Eos % (Auto) 0.8 Baso % (Auto) 1.0 Neut # (Auto) 2.8 Lymph # (Auto) 0.7 L [place] # (Auto) 0.4 Eos # (Auto) 0.0 Baso # (Auto) 0.0 WBC Differential . Differential Comment . PT INR APTT Sodium 141 Potassium 3.5 Chloride 105 Carbon Dioxide 30.1 Anion Gap 6 BUN 13 Creatinine 0.62 Estimated GFR Greater than 89 POC Glucose Random Glucose 87 Calcium 8.3 L D Total Bilirubin AST ALT Alkaline Phosphatase Ammonia Total Creatine Kinase CK-MB (CK-2) Troponin I Total Protein Albumin Urine Color Urine Clarity Urine pH Ur Specific [place] Urine Protein Urine Glucose (UA) Urine Ketones Urine Occult Blood Urine Nitrate Urine Bilirubin Urine Urobilinogen Ur Leukocyte Esterase Urine WBC Micro UA Comment Ur Microscopic Review Urine Culture Comments Urine Opiates Screen Ur Barbiturates Screen Ur Amphetamines Screen U Benzodiazepines Scrn Urine Cocaine Screen U Cannabinoids Screen Blood Type Blood Type Recheck Antibody Screen - Imaging Impressions Head CT 12/10/17 15:20 CONCLUSION: 1. Senescent changes without acute intracranial abnormality. . Chest X-Ray 12/10/17 15:21 CONCLUSION: Negative for an acute process Caprini VTE Risk Assessment Caprini VTE Risk Assessment: No/Low Risk (score <= 1) Caprini Risk Assessment Model: Point Value = 1 Point Value = 2 Point Value = 3 Point Value = 5 Age 41-60 Minor surgery BMI > 25 kg/m2 Swollen legs Varicose veins or History of unexplained or recurrent spontaneous Oral contraceptives or hormone replacement Sepsis (< 1 month) Serious lung disease, including pneumonia (< 1 month) Abnormal pulmonary function Acute myocardial infarction Congestive heart failure (< 1 month) History of inflammatory bowel disease Medical patient at bed rest Age 61-74 Arthroscopic surgery Major open surgery (> 45 min) Laparoscopic surgery (> 45 min) Malignancy Confined to bed (> 72 hours) Immobilizing plaster cast Central venous access Age >= 75 History of VTE Family history of VTE Factor V Leiden Prothrombin [id number] Lupus anticoagulant Anticardiolipin antibodies Elevated serum homocysteine Heparin-induced thrombocytopenia Other congenital or acquired thrombophilia Stroke (< 1 month) Elective arthroplasty Hip, pelvis, or leg fracture Acute spinal cord injury (< 1 month) Prophylaxis Regimen: Total Risk Factor Score Risk Level Prophylaxis Regimen 0-1 Low Early ambulation 2 Moderate Order ONE of the following: *Sequential Compression Device (SCD) *Heparin 5000 units SQ BID 3-4 Higher Order ONE of the following medications: *Heparin 5000 units SQ TID *Enoxaparin/Lovenox 40 mg SQ daily (WT < 150 kg, CrCl > 30 mL/min) *Enoxaparin/Lovenox 30 mg SQ daily (WT < 150 kg, CrCl > 10-29 mL/min) *Enoxaparin/Lovenox 30 mg SQ BID (WT < 150 kg, CrCl > 30 mL/min) AND/OR *Sequential Compression Device (SCD) 5 or more Highest Order ONE of the following medications: *Heparin 5000 units SQ TID (Preferred with Epidurals) *Enoxaparin/Lovenox 40 mg SQ daily (WT < 150 kg, CrCl > 30 mL/min) *Enoxaparin/Lovenox 30 mg SQ daily (WT < 150 kg, CrCl > 10-29 mL/min) *Enoxaparin/Lovenox 30 mg SQ BID (WT < 150 kg, CrCl > 30 mL/min) AND *Sequential Compression Device (SCD) Assessment and Plan - Assessment (1) Migraine Code(s): G43.909 - Migraine, unspecified, not intractable, without status migrainosus Status: Acute - Plan Ms. Reyez is a pleasant 77-year-old female with a history of hypothyroidism, migraine headaches who presented to the emergency department after she visited her primary care physician who noted disorientation. Patient did not have any other focal neurological deficits. Patient expressed concerns regarding upper extremity tremors. No tremors noted during this interview today. Confusion Migraine headache -Neurology evaluated patient. MRI pending. -Patient is currently alert and oriented 3, she is very coherent and pleasant. No sign of confusion. -Confusion may have been related to migraine headache Hypothyroidism -continue levothyroxine 112 mcg daily. Full code. SCDs. Discharge plan: If MRI negative, we may be able to discharge patient home today. Advised patient to follow up with outpatient neurology especially with her concern over upper ext tremors.
--- NOTE | 2017-12-11 14:22 | MR ---
EXAM DATE: 12/11/2017 1:30 PM EDT AGE/SEX: 77 years / Female INDICATIONS: Confusion.. CVA CLINICAL DATA: This is the patient's subsequent encounter. Patient reports that signs and symptoms h ave been present for 2 days and indicates a pain score of 0/10. MEDICAL/SURGICAL HISTORY: Hypothyroidism. Hypertension. tonsil cancer Appendectomy. Rt wrist surgery COMPARISON: [facility], CT HEAD W/O CONTRAST, 12/10/2017. . TECHNIQUE: Multiplanar, multisequence examination of the brain was performed without contrast. FINDINGS: There are foci of restricted diffusion in the right frontal lobe, insular cortex, as well as a focus of restricted diffusion in the right occipital lobe. There is corresponding increased FLAIR signal. T here is mild atrophy and patchy and confluent increased signal in the periventricular white matter an d basal ganglia most characteristic of chronic microvascular ischemic disease. There are no signs of intracranial hemorrhage. CONCLUSION: 1. Acute infarction seen in the right frontal region, insular cortex and a tiny focus of acute infar ction in the right occipital lobe. Electronically signed by: Ryan Casey MD 12/11/2017 2:21 PM EDT
--- NOTE | 2017-12-11 16:29 | ECG ---
Date Performed: 12/10/2017 Time Performed: 15:23:06 PTAGE: 77 years EKG: Sinus rhythm WITH OCCASIONAL SUPRAVENTRICULAR PREMATURE COMPLEXES BORDERLINE LEFT AXIS DEVIATION Since the previo us tracing, no significant change noted BORDERLINE ECG PREVIOUS TRACING : 08/20/2003 11.23 DOCTOR: Hugh Giron Interpretating Date/Time 12/11/2017 16:24:01
[2017-12-11] MEDS: Aspirin 325 MG Tablet PO SCH (17:34)
[2017-12-11] MEDS: Heparin - SQ 10,000 UNITS/ML Vial SQ SCH (21:03)
--- NOTE | 2017-12-11 21:25 | US ---
EXAM DATE: 12/11/2017 9:21 PM EDT AGE/SEX: 77 years / Female INDICATIONS: Altered mental status. CLINICAL DATA: This is the patient's initial encounter. Patient reports that signs and symptoms have been present for 1 day and indicates a pain score of 0/10. MEDICAL/SURGICAL HISTORY: Carcinoma, tonsillar. Hypothyroidism. Migraine headaches. . Open re duction and internal fixation (ORIF) procedure. COMPARISON: . VELOCITY PARAMETERS: ICA/CCA Ratio: Right 2.4 , Left 1.7 ICA: Right 109 cm/sec, Left 107 cm/sec CCA: Right 46 cm/sec, Left 62 cm/sec ECA: Right 50 cm/sec, Left 39 cm/sec Vertebral: Right 39 cm/sec antegrade, Left 71 cm/sec antegrade FINDINGS: Right Carotid: Mild arteriosclerotic plaque is visualized.The waveforms are within normal limits. Left Carotid: Mild arteriosclerotic plaque is visualized. The waveforms are within normal limits. Other: None. CONCLUSION: 1. Right Internal Carotid Artery: No hemodynamically significant stenosis. 2. Left Internal Carotid Artery: No hemodynamically significant stenosis. Electronically signed by: Shmuel Puente MD 12/11/2017 9:23 PM EDT
[2017-12-12] MEDS: Heparin - SQ 10,000 UNITS/ML Vial SQ SCH ×2 (08:20→20:36)
[2017-12-12] MEDS: Aspirin 325 MG Tablet PO SCH (08:21)
[2017-12-12 10:40] LABS: Chol/HDL Ratio 2.74 Ratio; HDL Cholesterol 60.2 mg/dL (40.0-60.0)
--- NOTE | 2017-12-12 11:40 | MR ---
EXAM DATE: 12/12/2017 11:36 AM EDT AGE/SEX: 77 years / Female INDICATIONS: CVA. CLINICAL DATA: This is the patient's initial encounter. Patient reports that signs and symptoms have been present for 2 days and indicates a pain score of 0/10. MEDICAL/SURGICAL HISTORY: Carcinoma, tonsillar. Hypertension. Appendectomy. Right wrist surger y. COMPARISON: [facility], MR HEAD W/O CONTRAST, 12/11/2017. [facility], CT HEAD W/O CONTRAST, 12/10/2017. . TECHNIQUE: 3D [id number] MRA was performed. Source images, multiplanar STS MIP, and 3D volum e MIP reconstructions were reviewed. FINDINGS: There is excellent visualization of the major intracranial arteries out to the second-order branch ve ssels. There is no evidence for aneurysm, vessel truncation or stenosis, and no evidence for vascula r malformation. CONCLUSION: 1. Negative MRA Cow ([place]) non contrast. Electronically signed by: Ryan Casey MD 12/12/2017 11:39 AM EDT
--- NOTE | 2017-12-12 15:13 | P.PN ---
Subjective Interval history: Follow up for acute stroke. Patient is currently doing well. Denies any acute concerns. Eager to go home. Physical Exam Vital signs: Vital Signs 12/11/17 16:00 12/11/17 18:38 12/11/17 20:00 Temperature 98.0 F 99 F Pulse Rate 82 76 70 Respiratory Rate 16 20 Blood Pressure 124/76 142/81 H Pulse Oximetry 96 97 12/11/17 23:58 12/12/17 03:40 12/12/17 04:00 Temperature 97.9 F 97.6 F Pulse Rate 67 91 H 65 Respiratory Rate 20 20 Blood Pressure 135/74 122/72 Pulse Oximetry 95 95 12/12/17 08:00 12/12/17 12:00 Temperature 97.9 F 98.0 F Pulse Rate 70 70 Respiratory Rate 16 18 Blood Pressure 142/84 H 122/74 Pulse Oximetry 94 L 94 L Intake & Output 12/11/17 12/12/17 12/12/17 18:59 06:59 18:59 Intake Total 1740 / 1740 480 / 480 Balance 1740 / 1740 480 / 480 Weight 59.5 kg Intake: IV 1020 / 1020 NS Inj 1,000 ML @ 100 mls/hr IV 1020 / 1020 .CONT .Q10H [facility] Rx#:[id number] Oral 720 / 720 480 / 480 Other: # Voids 5 4 Date of Last Bowel Movement 12/09/17 12/09/17 # Bowel Movements 0 Narrative: GENERAL: Alert, Oriented x 3, NAD. SKIN: Warm and dry. HEAD: Normocephalic. EYES: No scleral icterus. No injection or drainage. NECK: Supple, trachea midline. No JVD or lymphadenopathy. CARDIOVASCULAR: Regular rate and rhythm without murmurs, gallops, or rubs. RESPIRATORY: Breath sounds equal bilaterally. No accessory muscle use. GASTROINTESTINAL: Abdomen soft, non-tender, nondistended. MUSCULOSKELETAL: No cyanosis, or edema. BACK: Nontender without obvious deformity. No CVA tenderness. Results - Labs CBC & Chem 7: 12/11/17 05:50 12/11/17 05:50 Laboratory Results - last 24 hr 12/11/17 05:50 Triglycerides 51 Cholesterol 165 LDL Cholesterol, Calc 95 HDL Cholesterol 60.2 H Cholesterol/HDL Ratio 2.74 - Imaging Impressions Carotid Doppler Study 12/11/17 00:00 CONCLUSION: 1. Right Internal Carotid Artery: No hemodynamically significant stenosis. 2. Left Internal Carotid Artery: No hemodynamically significant stenosis. Head MRA 12/12/17 00:00 CONCLUSION: 1. Negative MRA [place] ([place]) non contrast. Assessment and Plan - Assessment (1) Migraine Code(s): G43.909 - Migraine, unspecified, not intractable, without status migrainosus Status: Acute - Plan Ms. Reyez is a pleasant 77-year-old female with a history of hypothyroidism, migraine headaches who presented to the emergency department after she visited her primary care physician who noted disorientation. Patient did not have any other focal neurological deficits. Patient expressed concerns regarding upper extremity tremors. No tremors noted during this interview today. Acute multi-infarct stroke -MRI shows acute infarction in the right frontal region, insular cortex and a tiny focus of acute infarction in the right occipital lobe. -Multiple infarction is concerning for cardioembolic source. -Echocardiogram done, report pending. -Per neurology recommendation, will consult cardiology. -I discussed with Dr. Gilmore. Will request a transfer to the [facility] for loop recorder placement. -Patient can likely be discharged after loop recorder placement on 12/13/2017. -Continue aspirin 325 mg daily, atorvastatin 20 mg nightly. Hypothyroidism -continue levothyroxine 112 mcg daily. Full code. Heparin SQ.
--- NOTE | 2017-12-12 15:51 | MG ---
cc: Jules Pearce MD, PhD TEST NUMBER: [id number] TECHNIQUE: A 17-channel EEG. DESCRIPTION: The background rhythm reveals a symmetrical alpha rhythm, frequency, 8 Hz. Amplitude is 10-20 microvolts. There is some muscle artifact present. There are no lateralizing features identified. There is no epileptiform discharges present. Hyperventilation was not done. Photic stimulation results in a normal driving response. INTERPRETATION: This is a normal electroencephalogram. Jules Pearce MD, PhD DRAKE/ct , 03:40 PM , 03:46 PM
--- NOTE | 2017-12-12 16:27 | ECHRPT ---
Indication: CVA/TIA CONCLUSIONS The left ventricular systolic function is hyperdynamic with an estimated ejection fraction in the ra nge of 65- 70%. Normal left ventricular size. Wall thickness is normal. No regional wall motion abnormalities are present. Trace mitral valve regurgitation. Trace aortic valve regurgitation. There is trace tricuspid valve regurgitation. The estimated pulmonary arterial pressure is 41.6 mmHg. BP: / HR: Rhythm: Other MEASUREMENTS (Male / Female) Normal Values Technical Quality:Fair 2D ECHO LV Diastolic Diameter PLAX 4.7 cm 4.2 - 5.9 / 3.9 - 5.3 cm LV Systolic Diameter PLAX 3.1 cm IVS Diastolic Thickness 1.0 cm 0.6 - 1.0 / 0.6 - 0.9 cm LVPW Diastolic Thickness 1.1 cm 0.6 - 1.0 / 0.6 - 0.9 cm LV Relative Wall Thickness 0.4 LVOT Diameter 2.1 cm LA Systolic Diameter LX 3.1 cm 3.0 - 4.0 / 2.7 - 3.8 cm LV Ejection Fraction MOD 4C 68.2 % LV Ejection Fraction 4C AL 69.7 % M-MODE Aortic Root Diameter MM 3.7 cm AV Cusp Separation MM 1.8 cm DOPPLER AV Peak Velocity 137.0 cm/s AV Peak Gradient 7.5 mmHg AI Peak Velocity 198.0 cm/s AI Peak Gradient 15.7 mmHg AI Pressure Half Time 944.0 ms LVOT Peak Velocity 103.0 cm/s LVOT Peak Gradient 4.2 mmHg AV Area Cont Eq pk 2.6 cm MV Area PHT 4.6 cm Mitral E Point Velocity 71.6 cm/s Mitral A Point Velocity 62.7 cm/s Mitral E to A Ratio 1.1 LV E' Lateral Velocity 9.8 cm/s Mitral E to LV E' Lateral Ratio 7.3 LV E' Septal Velocity 6.0 cm/s Mitral E to LV E' Septal Ratio 11.9 TR Peak Velocity 281.0 cm/s TR Peak Gradient 31.6 mmHg Right Atrial Pressure 10.0 mmHg Pulmonary Artery Systolic Pressu 41.6 mmHg Right Ventricular Systolic Press 41.6 mmHg PV Peak Velocity 96.4 cm/s PV Peak Gradient 3.7 mmHg FINDINGS LEFT VENTRICLE The left ventricular systolic function is hyperdynamic with an estimated ejection fraction in the ra nge of 65- 70%. Normal left ventricular size. Wall thickness is normal. No regional wall motion abnormalities are present. RIGHT VENTRICLE Normal right ventricular size and systolic function. LEFT ATRIUM The left atrial size is normal. RIGHT ATRIUM The right atrial size is normal. ATRIAL SEPTUM Normal atrial septal thickness without atrial level shunting by limited color doppler interrogation. AORTA The aortic root and proximal ascending aorta are normal in size on limited imaging. MITRAL VALVE Structurally normal mitral valve. Trace mitral valve regurgitation. AORTIC VALVE Trileaflet aortic valve. Trace aortic valve regurgitation. TRICUSPID VALVE Structurally normal tricuspid valve. There is trace tricuspid valve regurgitation. The estimated pulmonary arterial pressure is 41.6 mmHg. PULMONARY VALVE No pulmonary valve regurgitation or stenosis. VESSELS The inferior vena cava is normal in size. PERICARDIUM No pericardial effusion. Skip Gilmore MD (Electronically Signed) Final Date:12 December 2017 16:26 Amended: 12 December 2017 16:37
[2017-12-13] MEDS: Aspirin 325 MG Tablet PO SCH (08:06)
[2017-12-13] MEDS: Heparin - SQ 10,000 UNITS/ML Vial SQ SCH (08:09)
[2017-12-13 08:21] VITALS: TEMP 98
--- NOTE | 2017-12-13 10:41 | MB ---
cc: Skip Gilmore MD DATE: 12/13/2017 REASON FOR CONSULTATION: Evaluation for insertable loop recorder. HISTORY OF PRESENT ILLNESS: This is a 77-year-old female with a history of hypothyroidism and migraine headaches, who presents to the emergency room on 12/10/2017 with moderate confusion. She had a bad migraine headache on 12/09/2017. She has had quite a bit of workup. Her echo was normal. Her EKG showed sinus rhythm with occasional PACs. Her MRI was notable for an acute infarction seen in the right frontal region insular cortex, and a tiny focus of acute infarction of the right occipital lobe. I have now been asked to insert a loop recorder looking for possibility that she has had AFib. She denies any significant palpitations. She has had a few sharp 1-second chest pains, but no angina, no shortness of breath, no impairment of her physical activity. She does not have hypertension or diabetes. She has never smoked. FAMILY HISTORY: Her father of a heart attack in his early 60s. Her sister had mitral valve replacement and a ventriculoperitoneal shunt for hydrocephalus. The remaining family and social history is negative. REVIEW OF SYSTEMS: Noncontributory. PHYSICAL EXAMINATION: GENERAL: Reveals an elderly, well-developed female in no acute distress. VITAL SIGNS: Charted. She has been mostly normotensive. She had 1 blood pressure reading of 164/84 . Telemetry strip shows sinus rhythm with occasional ectopy. LABORATORY DATA: Her laboratories show a hematocrit of 36.9. Creatinine of 0.62. Troponin was negative. Cholesterol is 165 with an HDL of 60 and LDL 95. IMPRESSION: Strokes of unclear etiology. Neurology would like a loop recorder to rule out intermittent atrial fibrillation. PLAN: An informed consent has been obtained for an insertable loop recorder. We will plan to do that later this morning. MD ANA LAURA Davalos/lilliam , 07:33 AM , 07:41 AM
--- NOTE | 2017-12-13 11:10 | P.DS ---
Date of admission: 12/13/17 09:13 Primary care physician: Ruslan Malagon MD Attending physician on discharge: Immanuel Lawton Anticipated date of discharge: 12/13/17 Brief History from admission: Ms. Reyez is a pleasant 77-year-old female with a history of hypothyroidism and migraine headache who presents to the emergency department on 12/10/2017 due to moderate confusion noted by her primary care physician. Patient reports a bad migraine headache on 12/09/2017. She felt that she was in a stuporous state. On 12/10/2017 she went to her primary care physician for a vitamin B12 shot. Primary care physician noted that patient was disoriented. Patient denies any dysarthria, facial drooling, any focal neurological deficits other than what her primary care physician mention about confusion. She was subsequently advised to come to the emergency department. Patient denies any chest pain, shortness of breath, cough, abdominal pain, fever or chills. No changes in bowel or bladder habits. Additionally, patient expressed concern about upper extremity tremors. During this examination and interview no tremors were noted. Family history: No family history of Alzheimer's or Parkinson's. Past surgical history: ORIF. Social history: Patient denies using tobacco, alcohol, illicit drugs. Past medical history cancer of tonsil, migraine headache, hypothyroidism. Patient update on day of discharge: Follow-up visit acute stroke. Patient seen and examined today. Reports she is doing well. States no acute issues overnight. States that she just had her loop recorder done. Patient is requesting to go home. Requesting home health care for assistance at home. Otherwise, Denies pain and discomfort. Denies SOB / dyspnea. Denies chest pain, palpitations, headaches, dizziness. Denies fevers , chills, n/v/d. Denies hematuria, dysuria. DS: Diagnosis - Discharge Diagnosis (1) Migraine Status: Acute (2) TIA (transient ischemic attack) Status: Acute (3) CVA (cerebral vascular accident) Status: Acute DS: Medications - Discharge Medications Prescriptions: aspirin 325 mg PO DAILY #30 tab atorvastatin 20 mg PO HS #30 tab DS: Summary Hospital Course: Ms. Reyez is a pleasant 77-year-old female with a history of hypothyroidism, migraine headaches who presented to the emergency department after she visited her primary care physician who noted disorientation. Patient did not have any other focal neurological deficits. Patient expressed concerns regarding upper extremity tremors. No tremors noted. No changes in vision, speech or any unilateral weakness. MRI of the brain showed acute infarction in the right frontal region, insular cortex and a tiny focus of acute infarction in the right occipital lobe. Multiple infarction is concerning for cardioembolic source. Echocardiogram has been done, resulting EF of 65-70%, left ventricular systolic function is hyperdynamic. Normal left ventricular size. Allergy has seen the patient and recommended consult cardiology. Dr. Gilmore has evaluated the patient from cardiology standpoint. Loop recorder has been placed today 12/13/17. She will continue on aspirin, atorvastatin daily. As per Dr. Gilmore patient is cleared to be discharged home with follow-up in his office. She continued to have levothyroxine for hypothyroidism. Patient has met maximal benefits of hospitalization. Clinically stable for discharge. She will be followed by home health care. - Time Spent with Patient Total time spent providing and/or coordinating discharge services: Greater than 30 minutes - Quality: VTE Deep Vein Thrombosis/Pulmonary Embolism Present on Admission: No Exam Vital signs: Vital Signs 12/12/17 12:00 12/12/17 16:00 12/12/17 20:00 Temperature 98.0 F 99.2 F 98.9 F Pulse Rate 70 72 75 Respiratory Rate 18 18 19 Blood Pressure 122/74 133/76 139/82 Pulse Oximetry 94 L 95 100 12/13/17 00:00 12/13/17 00:08 12/13/17 08:00 Temperature 98.4 F 98 F Pulse Rate 65 73 98 H Respiratory Rate 20 16 Blood Pressure 164/84 H 161/83 H Pulse Oximetry 97 99 Intake & Output 12/12/17 12/13/17 12/13/17 18:59 06:59 18:59 Intake Total 960 / 960 Balance 960 / 960 Intake: Oral 960 / 960 Other: # Voids 4 Date of Last Bowel Movement 12/12/17 12/12/17 Narrative: GENERAL: This is a thin appearing, well-developed patient, in no apparent distress. SKIN: Warm and dry. HEENT: Normocephalic. Pupils equal round and reactive. Nose without bleeding. Airway patent. NECK: Trachea midline. No JVD. Supple. CARDIOVASCULAR: Regular rate and rhythm without murmurs, gallops, or rubs. Left sternal site with dressing clean dry and intact RESPIRATORY: Clear to auscultation. Breath sounds equal bilaterally. No wheezes , rales, or rhonchi. GASTROINTESTINAL: Abdomen soft, non-tender, nondistended. Bowel Sounds normoactive x4. MUSCULOSKELETAL: Extremities without clubbing, cyanosis, or edema. NEUROLOGICAL: Awake and alert. Oriented to time, place, person. No focal neuro deficit. Moves all extremities. Normal speech. Results Procedures completed during hospitalization: Loop recorder placement 12/13/17 - Impressions ITS Impressions Head CT 12/10/17 15:20 CONCLUSION: 1. Senescent changes without acute intracranial abnormality. . Chest X-Ray 12/10/17 15:21 CONCLUSION: Negative for an acute process Carotid Doppler Study 12/11/17 00:00 CONCLUSION: 1. Right Internal Carotid Artery: No hemodynamically significant stenosis. 2. Left Internal Carotid Artery: No hemodynamically significant stenosis. Head MRI 12/11/17 00:00 CONCLUSION: 1. Acute infarction seen in the right frontal region, insular cortex and a tiny focus of acute infarction in the right occipital lobe. Head MRA 12/12/17 00:00 CONCLUSION: 1. Negative MRA [place] ([employer] [place]) non contrast. Discharge Plan - Discharge Disposition Patient Disposition: /Home Health Service - Discharge Condition Condition: Good - Discharge Order Discharge Orders: Discharge Order (Routine); Ordered 12/13/17 Ordered By: Costa Soriano - Physicians Team Primary Care Provider: Ruslan Malagon Attending Provider: Immanuel Lawton Other Providers: Pool Snow MD ; Skip Gilmore MD
--- NOTE | 2017-12-13 11:11 | P.DCO ---
- Physical Therapy Order: Evaluate and treat - Home Health Nursing Order: Medical education, Signs/symptoms of disease process, Nursing assessment with vital signs - Certification I have seen patient Roxy Reyez on 12/13/17. My clinical findings support the need for the requested home health care services because: Deconditioned with increased weakness, Limited ability to care for self I certify that my clinical findings support that this patient is homebound because: Unsteady gait/balance, Poor cardiac reserve
[2017-12-13 11:44] VITALS: BP 161/79; PULSE 67; RESP 22; O2SAT 96
--- NOTE | 2017-12-13 12:01 | MP ---
cc: Skip Gilmore MD DATE OF OPERATION: 12/13/2017 PREOPERATIVE INDICATIONS: Multiple CVAs, possible atrial fibrillation as an etiology. PROCEDURE PERFORMED: Insertion of insertable loop recorder. DESCRIPTION OF PROCEDURE: Informed consent was obtained. The patient was prepped and draped in sterile fashion. Using 1% lidocaine for local anesthesia, the left fourth intercostal space was injected with 1% lidocaine and using the standard insertion kit, a loop recorder was inserted in the fourth intercostal space with an R-wave of 0.41 millivolts. There were no complications. The patient tolerated the procedure well. From a cardiac standpoint, she is stable to be discharged later today. Skip Gilmore MD VEW/ld/ll , 09:42 AM , 09:46 AM
== END 2017-12-13 13:09 | disposition home health service (06) ==
LOC: PHEDA 14:57 → PHED 14:57 → PH3 22:57 → PHEDA 22:57 → PH3 12-12 18:54 → NEPFCDU 12-12 19:16
PROVIDERS: ADMIT Hospitalist; ATTEND Hospitalist
PROC: LOOPREV (2017-12-13 07:30)